=== PATIENT | female | born 1995 | race Caucasian/White ===

== ENCOUNTER 2016-11-17 09:44 | Day surgery (SDC) | payer OTHER ==
[~2016-11-17] VITALS: Ht 154.9 cm; Wt 87.1 kg
[~2016-11-17 09:44] MED LIST: CARB200T PO; CEFAZOLIN 1GM IVPB FOR OMNI 50 ML IV PRN; CYAN10005 PO; FENTANYL PF 100 MCG/2 ML VIAL. IV PRN; GABA-585 PO; GABA-586 PO; HYDROMORPHONE 2 MG/ML VIAL. IV PRN; IV RINGERS,LACTATED 1000ML 1,000 ML IV SCH; LIDOCAINE 1% 1 ML SYRINGE. ID PRN; LORA5SOL4 PO; MORPHINE SULFATE 2 MG/ML DISP.SYRIN. IV PRN; ONDANSETRON PF 4 MG/2 ML VIAL. IV PRN; PROCHLORPERAZINE 10 MG/2 ML VIAL. IV PRN; TRAM50TA PO; VENTOLIN HFA18 GM INH
[2016-11-17 10:24] LABS: NEG OBC UR NEG; POS OBC UR POS
--- NOTE | 2016-11-17 11:08 | RAD ---
Indication: Foreign body upper arm. 2.5 minutes of fluoroscopy time was utilized. A single image was obtained demonstrating attempted removal of a linear opacity in the soft tissues of the left upper extremity, likely a catheter fragment. Impression: Fluoroscopy for foreign body removal.
[2016-11-17] MEDS ORDERED: METHYLENE BLUE 1% 1 ML VIAL. IJ ONE (11:30)
--- NOTE | 2016-11-17 11:51 | RAD ---
Ultrasound-guided localization wire placement, 11/17/2016: History: Planned contraceptive device removal Previous radiographs demonstrated an elongated tubular radiopaque foreign body compatible with a contraceptive implant in the soft tissues of the left upper arm medially. This was not visualized sonographically on the prior ultrasound exam. Under fluoroscopic observation the overlying skin was marked to aid in sonographic localization. The inferior aspect of the implant lies most superficially. The implant extends deeper as it passes more superiorly in the upper arm. The patient was then transferred to the ultrasound suite where the implant was clearly visualized. Under local anesthesia, aseptic conditions and sonographic guidance a Kopan's needle with modified retention wire was placed along the margin of the implant. A small amount of methylene blue was injected as requested. The modified Kopans retention wire was then inserted and the needle removed. The wire is directed in an inferior to superior tn along the margin of the implant. The patient tolerated the procedure well and was sent to surgery in good condition.
--- NOTE | 2016-11-17 12:10 | PDOC ---
SURGICAL PROGRESS NOTE Subjective History and Physical: The patient reports a 3 year history of subcutaneous control implant in her left arm. The implant was scheduled to come out last August, and she has undergone two previous removal attempts which were unsuccessful due to difficultly localizing the implant. Today she notes some tenderness to palpation of her left arm due to previous incisions but denies any other symptoms at this time. Medical history: trigeminal neuralgia for which she takes gabapentin and carbamazepine daily. She is not currently taking any anticoagulants Surgical history: cholecystectomy in 2012 Allergies: lyrica Social history: occasional alcohol use, no smoking, no current drug use. Diagnosis: 1. Contraceptive implant removal 2. Trigeminal neuralgia. Physical exam: Head and neck grossly normal without obvious deformity, Heart regular rate and rhythm, no murmurs, lungs clear to auscultation bilaterally, no wheezes or rhonchi. Abdomen soft, nontender. Vital Signs Vital Signs Date Time Temp Pulse Resp B/P Pulse Ox O2 Delivery O2 Flow Rate FiO2 11/17/16 10:29 98.2 119 20 99 98.2 11/17/16 10:26 142/91 Room Air Labs Laboratory Tests Test 11/17/16 10:19 Urine Test Negative (NEG) Laboratory Tests Test 11/17/16 10:19 Urine Test Negative (NEG) SERA CARRASQUILLO MD Nov 17, 2016 12:10
--- NOTE | 2016-11-17 12:16 | PDOC ---
SURGICAL PROGRESS NOTE Subjective Surgeon............................................... Gino Preoperative diagnosis........................... Contraceptive implant left arm Post operative diagnosis......................... Contraceptive implant left arm Anesthesia............................................ General Procedure............................................. Contraceptive implant removal left arm Blood loss............................................. 5 cc's Drains.................................................... None Fluids.................................................... See anesthesia's sheets. condition................................................ Satisfactory. Vital Signs Vital Signs Date Time Temp Pulse Resp B/P Pulse Ox O2 Delivery O2 Flow Rate FiO2 11/17/16 10:29 98.2 119 20 99 98.2 11/17/16 10:26 142/91 Room Air Labs Laboratory Tests Test 11/17/16 10:19 Urine Test Negative (NEG) Laboratory Tests Test 11/17/16 10:19 Urine Test Negative (NEG) SERA CARRASQUILLO MD Nov 17, 2016 12:16
[2016-11-17] MEDS ORDERED: LIDOCAINE 2% 100 MG/5 ML DISP.SYRIN. ONE (12:17)
[2016-11-17] MEDS ORDERED: FAMOTIDINE 20 MG/2 ML VIAL ONE (12:17)
[2016-11-17] MEDS ORDERED: PROPOFOL 20 ML IV ONE (12:17)
[2016-11-17] MEDS ORDERED: ONDANSETRON PF 4 MG/2 ML VIAL. ONE (12:17)
[2016-11-17] MEDS ORDERED: DEXAMETHASONE SOD PHOS 20 MG/5 ML VIAL. ONE (12:17)
[2016-11-17] MEDS ORDERED: FENTANYL PF 100 MCG/2 ML VIAL. ONE (12:19)
[2016-11-17] MEDS ORDERED: MIDAZOLAM HCL 2 MG/2 ML VIAL. ONE (12:19)
[2016-11-17] MEDS ORDERED: SEVOFLURANE 61 TO 120 MINUTES. IH ONE (13:45)
[2016-11-17] MEDS: FENTANYL PF 100 MCG/2 ML VIAL. IV PRN ×2 (14:06→14:13)
[2016-11-17 14:39] VITALS: BP 133/82
--- NOTE | 2016-11-18 04:00 | OP ---
DATE OF SURGERY: SURGEON: Pawel Carrasquillo MD PREOPERATIVE DIAGNOSIS: Foreign body left upper arm, medial aspect. POSTOPERATIVE DIAGNOSIS: Foreign body left upper arm, medial aspect. ANESTHESIA: General. PROCEDURE: Excision foreign body left upper arm. TECHNIQUE: Under general anesthesia, the patient was properly prepped and draped in routine fashion. The patient demanded general anesthesia. The patient had a guidewire put in localizing the foreign body, which may have been a control device. At any rate, the guidewire was at the inferior portion of medial aspect of the left upper arm and we therefore made an incision longitudinally going in the direction of the wire. The 15 blade was used for this. The wire went towards the shoulder and therefore, the incision stopped about a quarter of an inch above the wire and was going from its entrance site. The incision was about inch and half in length. We carried down through the skin, grasped the wire and tissue around it and then delivered the wire into the wound. We then grasped the tissue around the wire and simply dissected using Metzenbaum scissors the area up following the wire. I must state that the foreign body was just medial to and along side the wire and radiologist had done an excellent job. We grasped the foreign body, divided the tissue around it and removed the foreign body and the wire totally. This was sent to the lab. The resultant defect was inspected. Cautery was used for fair amount of bleeding, which was stopped. A 4-0 Vicryl was used then to approximate the Sub-Q and a 5-0 subcuticular suture of Vicryl was used to close the skin. Tegaderm dressing was applied and the procedure was terminated. The blood loss was probably less than 5. No drains were used. FLUIDS GIVEN: Can be obtained from the anesthesia sheet. CONDITION OF THE PATIENT: Satisfactory as she is returned to the recovery room. PAWEL CARRASQUILLO MD DR: HERBERT/rangel JOB#: [id number] / [id number] ELIZABETH Gamez MD [facility]
--- NOTE | 2016-11-18 13:59 | PATHOLOGY ---
PATHOLOGY REPORT * * * * * * * * FINAL DIAGNOSIS: Foreign body and fibroadipose tissue, foreign body removal left arm: - Foreign body (Contraceptive implant). - Pseudocapsule of fibroadipose tissue. (JPM:; d/t: 11/18/16) REPORT ELECTRONICALLY SIGNED BY: Stefan Hare M.D. DATE/TIME: 11/18/2016 13:59 * * * * * * * * GROSS PATHOLOGY: The specimen is received in formalin labeled "Umu Miranda foreign body," and additionally labeled on the requisition as, "left arm". Received is a tubular segment of white plastic measuring 4.0 cm in length by 0.2 cm in diameter. Also received within the specimen container is a slight amount of pale smith to green-blue soft tissue measuring 1.0 x 0.6 x 0.3 cm in greatest dimensions. The soft tissues submitted entirely in cassette A1. A gross photograph is taken. (CAA; 11/17/2016) INITIAL CPT CODE(S): 54099 Professional services performed by [facility] [place] [address] Technical services performed by [facility] at [address] [place] [address] [address] [address]. SPECIMEN(S) RECEIVED: A.Foreign body CLINICAL HISTORY: Contraceptive implant left arm PATIENT: UMU MIRANDA /AGE: 1210/17/1995 (Age: 21) PATIENT #: [id number] ALT CASE #: SPECIMEN COLLECTION DATE: 11/17/2016 SPECIMEN RECEIVED DATE: 11/17/2016 [facility] - [address] [place] [address] - PHONE: [phone] * * * END OF REPORT * * *
== END 2016-11-17 14:53 | disposition home or self-care (01) ==
LOC: SURG 09:44
PROVIDERS: ATTEND Specialist
DX: S40.852A Superficial foreign body of left upper arm, initial encounter (principal); J45.909 Unspecified asthma, uncomplicated; F32.9 Major depressive disorder, single episode, unspecified; F41.9 Anxiety disorder, unspecified; Z87.440 Personal history of urinary (tract) infections; Z72.89 Other problems related to lifestyle; Z90.49 Acquired absence of other specified parts of digestive tract
CPT/HCPCS: 10120; 76000; 81025; 88302; J0690; J1100; J2250; J2405; J2704; J3010; Q9968; S0028; 19083; 76942

== ENCOUNTER 2017-10-18 15:16 | Emergency (ER) | payer OTHER ==
[2017-10-18] MEDS: ONDANSETRON PF 4 MG/2 ML VIAL. IV (15:53)
[2017-10-18] MEDS: IV NORMAL SALINE 1000ML BAG 1,000 ML IV (15:54)
[2017-10-18] MEDS: HYDROmorphone 2 MG/ML VIAL IV (15:54)
[2017-10-18 15:55] LABS: ADD MAN DIFF? NO
[2017-10-18 15:59] LABS: BASO # 0.1 x10^3/uL (0.0-0.2); BASO % 0 % (0-3); EOS % 2 % (0-3); HEMATOCRIT 41.8 % (36.0-47.0); HEMOGLOBIN 13.8 g/dL (12.0-15.5); LYMPH # 3.1 x10^3/uL (1.0-4.8); LYMPH % 21 % (24-48); MEAN CORPUSCULAR HEMOGLOBIN 25 pg (25-35); MEAN CORPUSCULAR HGB CONC 33 g/dL (31-37); MEAN CORPUSCULAR VOLUME 77 fL (79-100); MONO % 5 % (0-9); NEUT % 72 % (31-73); PLATELET COUNT 480 x10^3/uL (140-400); RED BLOOD COUNT 5.45 x10^6/uL (3.50-5.40)
[2017-10-18 16:05] LABS: ANION GAP 11 (6-14); BLOOD UREA NITROGEN 9 mg/dL (7-20); BUN/CREATININE RATIO 13 (6-20); CALCIUM 9.5 mg/dL (8.5-10.1); CARBON DIOXIDE 28 mmol/L (21-32); CHLORIDE 103 mmol/L (98-107); CREATININE 0.7 mg/dL (0.6-1.0); GFR 102.8; GLUCOSE 114 mg/dL (70-99); POTASSIUM 3.3 mmol/L (3.5-5.1); SODIUM 142 mmol/L (136-145)
[2017-10-18 16:10] LABS: ALBUMIN 4.2 g/dL (3.4-5.0); ALK PHOS 119 U/L (46-116); ALT (SGPT) 49 U/L (14-59); AST (SGOT) 26 U/L (15-37); TOTAL BILIRUBIN 0.4 mg/dL (0.2-1.0); TOTAL PROTEIN 8.4 g/dL (6.4-8.2)
[2017-10-18 16:45] LABS: URINE HCG POC HCG NEGATIVE (Negative)
[2017-10-18 16:47] LABS: BILIRUBIN,URINE SMALL (NEG); GLUCOSE,URINE NEGATIVE (NEG); NITRITE,URINE NEGATIVE (NEG); PH,URINE 6.5; PROTEIN,URINE NEGATIVE (NEG-TRACE)
[2017-10-18 17:05] LABS: BACTERIA,URINE MODERATE /HPF (0-FEW); RBC,URINE 0 /HPF (0-2); SQUAMOUS EPITHELIAL CELL,UR MANY /LPF; WBC,URINE >40 /HPF (0-4)
[2017-10-18 17:06] LABS: YEAST,URINE PRESENT /HPF
== END 2017-10-18 20:34 | disposition home or self-care (01) ==
LOC: ER 15:16
DX: R10.32 Left lower quadrant pain (principal); M54.5 Low back pain; Z90.49 Acquired absence of other specified parts of digestive tract; Z88.8 Allergy status to other drugs, medicaments and biological substances
CPT/HCPCS: 36415; 74176; 76830; 76856; 80053; 81001; 81025; 83690; 85025; 87086; 96361; 96374; 96375; 99285-25; J0690; J1170; J2405; J7030

== ENCOUNTER → 2017-11-19 | Day surgery (SDC) | payer OTHER ==
[~2017-11-19] MED LIST changes: -CARB200T PO; -CEFAZOLIN 1GM IVPB FOR OMNI 50 ML IV PRN; -CYAN10005 PO; -FENTANYL PF 100 MCG/2 ML VIAL. IV PRN; -GABA-585 PO; -GABA-586 PO; -HYDROMORPHONE 2 MG/ML VIAL. IV PRN; -IV RINGERS,LACTATED 1000ML 1,000 ML IV SCH; -LIDOCAINE 1% 1 ML SYRINGE. ID PRN; +LIDOCAINE 1% PF 2 ML VIAL. ID; +LIDOCAINE 2% 100 MG/5 ML SYRINGE.; -LORA5SOL4 PO; +MIDAZOLAM HCL/PF 2 MG/2 ML VIAL. IV; -MORPHINE SULFATE 2 MG/ML DISP.SYRIN. IV PRN; -ONDANSETRON PF 4 MG/2 ML VIAL. IV PRN; -PROCHLORPERAZINE 10 MG/2 ML VIAL. IV PRN; +PROPOFOL 60 ML IV; -TRAM50TA PO; -VENTOLIN HFA18 GM INH; +fentaNYL PF VIAL 100 MCG/2 ML VIAL IV
[2017-11-19] MEDS: IV RINGERS,LACTATED 1000ML 1,000 ML IV (07:33)
[2017-11-19 07:42] LABS: NEG OBC UR NEG; POS OBC UR POS; U PREG PATIENT NEGATIVE (NEG)
[2017-11-22 18:11] LABS: ANA INTERP Negative (.)
== END | disposition home or self-care (01) ==
LOC: ENDOS 07:01
DX: K64.0 First degree hemorrhoids (principal); K29.50 Unspecified chronic gastritis without bleeding; K31.89 Other diseases of stomach and duodenum; D64.9 Anemia, unspecified; F41.9 Anxiety disorder, unspecified; J45.909 Unspecified asthma, uncomplicated; Z72.89 Other problems related to lifestyle; Z90.49 Acquired absence of other specified parts of digestive tract
CPT/HCPCS: 36415; 81025; 86038; 88305; J2704

== ENCOUNTER 2017-12-07 23:40 | Emergency (ER) | payer OTHER ==
[2017-12-08 01:56] LABS: INFLUENZA A PATIENT NEGATIVE (NEGATIVE); INFLUENZA B PATIENT NEGATIVE (NEGATIVE); OBC FLU VALID
== END 2017-12-08 02:22 | disposition home or self-care (01) ==
LOC: ER 23:40
DX: J06.9 Acute upper respiratory infection, unspecified (principal); M94.0 Chondrocostal junction syndrome [Tietze]; R07.89 Other chest pain; Z88.8 Allergy status to other drugs, medicaments and biological substances
CPT/HCPCS: 71046; 87804; 87804-59; 99285-25

== ENCOUNTER → 2018-03-23 | Outpatient (CLI) | payer OTHER | END | disposition home or self-care (01) | LOC: KCIC US 10:39 | DX: R10.11 Right upper quadrant pain (principal); R10.13 Epigastric pain; Z90.49 Acquired absence of other specified parts of digestive tract | CPT/HCPCS: 76705 ==

== ENCOUNTER 2018-09-13 12:14 | Emergency (ER) | payer OTHER ==
[~2018-09-13] VITALS: Ht 154.9 cm; Wt 87.1 kg
[~2018-09-13 12:14] MED LIST changes: +CARB200T PO; +CEPH-264 PO; +CYAN10005 PO; +GABA-585 PO; +GABA-586 PO; +IBUP-1007 PO; -LIDOCAINE 1% PF 2 ML VIAL. ID; -LIDOCAINE 2% 100 MG/5 ML SYRINGE.; +LORA5SOL43 PO; -MIDAZOLAM HCL/PF 2 MG/2 ML VIAL. IV; -PROPOFOL 60 ML IV; +TRAM50TA PO; +VENTOLIN HFA18 GM INH; -fentaNYL PF VIAL 100 MCG/2 ML VIAL IV
[2018-09-13 12:58] LABS: BILIRUBIN,URINE SMALL (NEG); CLARITY,URINE CLOUDY; COLOR,URINE RED; NITRITE,URINE NEGATIVE (NEG); PH,URINE 6.5; PROTEIN,URINE 100 mg/dL (NEG-TRACE)
[2018-09-13 13:08] LABS: SQUAMOUS EPITHELIAL CELL,UR FEW /LPF
[2018-09-13 13:09] LABS: BACTERIA,URINE FEW /HPF (0-FEW); RBC,URINE >40 /HPF (0-2)
--- NOTE | 2018-09-13 13:36 | RAD ---
OB <14 WKS W/TV History: Bleeding for 2 days, positive home test Comparison: None. Findings: Multiple transabdominal sonographic images of the pelvis are submitted. Uterus measured about 8 x 4 x 4.9 cm, no discrete gestational sac demonstrated. Left ovary measured 2.6 x 3 x 2.1 cm, somewhat poorly seen, no obvious solid or cystic lesion. Right ovary is not seen. No free fluid is demonstrated. Transvaginal ultrasound: Multiple transvaginal sonographic images of the pelvis are submitted. No gestational sac is identified of the uterus. Uterus measured 8.6 x 4.2 x 4.2 cm. Cervix measured 3.4 cm in length. Maximal endometrial thickness is about 0.6 cm. There is a small nabothian cyst about 0.4 cm greatest dimension. Right ovary is not seen. Left ovary measured 2.6 x 1.7 x 2.3 cm with normal low resistance vascularity, no solid or cystic lesion demonstrated. Impression: 1. Right ovary is not seen. There is no free fluid. No intrauterine is identified at this time. There is no abnormality of the visualized left ovary. Electronically signed by: Balaji Sy MD (09/13/2018 1:33 PM) [id number]
[2018-09-13 13:45] VITALS: BP 132/75
[2018-09-13 13:48] LABS: BASO # 0.1 x10^3/uL (0.0-0.2); BASO % 1 % (0-3); EOS # 0.3 x10^3/uL (0.0-0.7); EOS % 3 % (0-3); HEMATOCRIT 39.3 % (36.0-47.0); HEMOGLOBIN 13.1 g/dL (12.0-15.5); LYMPH # 1.8 x10^3/uL (1.0-4.8); LYMPH % 20 % (24-48); MEAN CORPUSCULAR HEMOGLOBIN 25 pg (25-35); MEAN CORPUSCULAR HGB CONC 33 g/dL (31-37); MEAN CORPUSCULAR VOLUME 75 fL (79-100); MONO # 0.6 x10^3/uL (0.0-1.1); MONO % 7 % (0-9); NEUT # 6.3 x10^3uL (1.8-7.7); NEUT % 70 % (31-73); PLATELET COUNT 382 x10^3/uL (140-400); RED BLOOD COUNT 5.26 x10^6/uL (3.50-5.40); RED CELL DISTRIBUTION WIDTH 15.2 % (11.5-14.5); WHITE BLOOD COUNT 9.1 x10^3/uL (4.0-11.0)
[2018-09-13 14:03] LABS: ALBUMIN 3.8 g/dL (3.4-5.0); CALCIUM 9.1 mg/dL (8.5-10.1); CREATININE 0.7 mg/dL (0.6-1.0); GFR 102.8; TOTAL BILIRUBIN 0.4 mg/dL (0.2-1.0); TOTAL PROTEIN 7.8 g/dL (6.4-8.2)
[2018-09-13 14:09] LABS: POTASSIUM 2.8 mmol/L (3.5-5.1)
[2018-09-13] MEDS ORDERED: POTASSIUM CHLORIDE 20 MEQ TABLET.ER. PO ONE (14:15)
[2018-09-13] MEDS ORDERED: NITR100C62 PO (14:22)
--- NOTE | 2018-09-13 14:25 | PHYS DOC ---
Past Medical History Past Medical History: Other Additional Past Medical Histor: Supra Orbital Neuralgia,Seasonal allergies. Past Surgical History: Cholecystectomy Additional Past Surgical Histo: left hand surgery Alcohol Use: Rarely Drug Use: None Adult General Chief Complaint Chief Complaint: VAGINAL BLEEDING HPI HPI Patient is a 22 year old [f__sex] who presents with [] Review of Systems Review of Systems Constitutional: Denies fever or chills [] Eyes: Denies change in visual acuity, redness, or eye pain [] HENT: Denies nasal congestion or sore throat [] Respiratory: Denies cough or shortness of breath [] Cardiovascular: No additional information not addressed in HPI [] GI: Denies abdominal pain, nausea, vomiting, bloody stools or diarrhea [] : Denies dysuria or hematuria [] Musculoskeletal: Denies back pain or joint pain [] Integument: Denies rash or skin lesions [] Neurologic: Denies headache, focal weakness or sensory changes [] Endocrine: Denies polyuria or polydipsia [] All other systems were reviewed and found to be within normal limits, except as documented in this note. Current Medications Current Medications Current Medications Medications (Trade) Dose Ordered Sig/Jonathan Start Time Stop Time Status Last Admin Dose Admin Potassium Chloride (Klor-Con) 40 meq 1X ONCE 09/13/18 14:15 09/13/18 14:16 DC Allergies Allergies Allergies Coded Allergies Type Severity Reaction Last Updated Verified pregabalin Allergy Intermediate Hives 11/19/17 Yes Physical Exam Physical Exam Constitutional: Well developed, well nourished, no acute distress, non-toxic appearance. [] HENT: Normocephalic, atraumatic, bilateral external ears normal, oropharynx moist, no oral exudates, nose normal. [] Eyes: PERRLA, EOMI, conjunctiva normal, no discharge. [] Neck: Normal range of motion, no tenderness, supple, no stridor. [] Cardiovascular:Heart rate regular rhythm, no murmur [] Lungs & Thorax: Bilateral breath sounds clear to auscultation [] Abdomen: Bowel sounds normal, soft, no tenderness, no masses, no pulsatile masses. [] Skin: Warm, dry, no erythema, no rash. [] Back: No tenderness, no CVA tenderness. [] Extremities: No tenderness, no cyanosis, no clubbing, ROM intact, no edema. [] Neurologic: Alert and oriented X 3, normal motor function, normal sensory function, no focal deficits noted. [] Psychologic: Affect normal, judgement normal, mood normal. [] Current Patient Data Vital Signs Vital Signs Date Time Temp Pulse Resp B/P (MAP) Pulse Ox O2 Delivery O2 Flow Rate FiO2 09/13/18 12:43 98.0 102 20 144/103 (117) 100 Room Air 98.0 Lab Values Laboratory Tests Test 09/13/18 12:20 09/13/18 13:35 Urine Collection Type Unknown Urine Color Red Urine Clarity Cloudy Urine pH 6.5 Urine Specific [place] 1.015 Urine Protein 100 mg/dL (NEG-TRACE) Urine Glucose (UA) Negative mg/dL (NEG) Urine Ketones (Stick) 15 mg/dL (NEG) Urine Blood Large (NEG) Urine Nitrite Negative (NEG) Urine Bilirubin Small (NEG) Urine Urobilinogen Dipstick 1.0 mg/dL (0.2 mg/dL) Urine Leukocyte Esterase Moderate (NEG) Urine RBC >40 /HPF (0-2) Urine WBC 1-4 /HPF (0-4) Urine Squamous Epithelial Cells Few /LPF Urine Bacteria Few /HPF (0-FEW) Urine Mucus Slight /LPF White Blood Count 9.1 x10^3/uL (4.0-11.0) Red Blood Count 5.26 x10^6/uL (3.50-5.40) Hemoglobin 13.1 g/dL (12.0-15.5) Hematocrit 39.3 % (36.0-47.0) Mean Corpuscular Volume 75 fL (79-100) L Mean Corpuscular Hemoglobin 25 pg (25-35) Mean Corpuscular Hemoglobin Concent 33 g/dL (31-37) Red Cell Distribution Width 15.2 % (11.5-14.5) H Platelet Count 382 x10^3/uL (140-400) Neutrophils (%) (Auto) 70 % (31-73) Lymphocytes (%) (Auto) 20 % (24-48) L Monocytes (%) (Auto) 7 % (0-9) Eosinophils (%) (Auto) 3 % (0-3) Basophils (%) (Auto) 1 % (0-3) Neutrophils # (Auto) 6.3 x10^3uL (1.8-7.7) Lymphocytes # (Auto) 1.8 x10^3/uL (1.0-4.8) Monocytes # (Auto) 0.6 x10^3/uL (0.0-1.1) Eosinophils # (Auto) 0.3 x10^3/uL (0.0-0.7) Basophils # (Auto) 0.1 x10^3/uL (0.0-0.2) Maternal Serum HCG Beta Subunit 70 mIU/mL (0-5) H Sodium Level 140 mmol/L (136-145) Potassium Level 2.8 mmol/L (3.5-5.1) *L Chloride Level 102 mmol/L (98-107) Carbon Dioxide Level 29 mmol/L (21-32) Anion Gap 9 (6-14) Blood Urea Nitrogen 4 mg/dL (7-20) L Creatinine 0.7 mg/dL (0.6-1.0) Estimated GFR (Cockcroft-Gault) 102.8 BUN/Creatinine Ratio 6 (6-20) Glucose Level 97 mg/dL (70-99) Calcium Level 9.1 mg/dL (8.5-10.1) Total Bilirubin 0.4 mg/dL (0.2-1.0) Aspartate Amino Transferase (AST) 24 U/L (15-37) Alanine Aminotransferase (ALT) 56 U/L (14-59) Alkaline Phosphatase 94 U/L (46-116) Total Protein 7.8 g/dL (6.4-8.2) Albumin 3.8 g/dL (3.4-5.0) Albumin/Globulin Ratio 1.0 (1.0-1.7) Laboratory Tests 09/13/18 13:35 Laboratory Tests 09/13/18 13:35 EKG EKG [] Radiology/Procedures Radiology/Procedures [] Course & Med Decision Making Course & Med Decision Making Pertinent Labs and Imaging studies reviewed. (See chart for details) [] Dragon Disclaimer Dragon Disclaimer This electronic medical record was generated, in whole or in part, using a voice recognition dictation system. Departure Departure Impression: Primary Impression: UTI (urinary tract infection) Disposition: 01 HOME, SELF-CARE Condition: STABLE Referrals: GREGORY MARCUM (PCP) TEA ONTIVEROS Jr, MD Patient Instructions: - Urinary Tract Infection Additional Instructions: Take antibiotic as directed. Follow up with obstetrics for a urine recheck in one week. If worsening return to the ED. Scripts Nitrofurantoin Monohyd/M-Cryst (MACROBID 100 MG CAPSULE) 100 Mg Capsule 1 CAP PO BID for UTI, #14 CAP Prov: DELMY JACKSON APRN 09/13/18 DELMY JACKSON APRN Sep 13, 2018 14:25
== END 2018-09-13 14:30 | disposition home or self-care (01) ==
LOC: ER 12:14
DX: O23.41 Unspecified infection of urinary tract in pregnancy, first trimester (principal); Z3A.09 9 weeks gestation of pregnancy; Z90.49 Acquired absence of other specified parts of digestive tract
CPT/HCPCS: 36415; 76801; 76817; 80053; 81001; 84702; 85025; 99284-25